=== PATIENT | male | born 1985 | race Caucasian/White ===

== ENCOUNTER 2017-08-05 17:33 | Inpatient (IN) | payer OTHER ==
[~2017-08-05] VITALS: Ht 170.2 cm; Wt 99.0 kg
[~2017-08-05 17:33] MED LIST: CEL20 PO; MOXIFLOXACIN PO; ROBACL PO
[2017-08-05 17:35] VITALS: Ht 170.2 cm; Wt 99.0 kg
[2017-08-05 18:57] LABS: BASOPHIL % 0.6 % (0-2); PLATELET COUNT 258 x10^3mcL (130-400); RED CELL DISTRIBUTION WIDTH 13.7 % (11.5-14.5)
[2017-08-05 19:03] LABS: CALCIUM 8.8 mg/dL (8.5-10.1); CARBON DIOXIDE 25.7 mmol/L (21-32); CHLORIDE SERUM 102 mmol/L (98-107); GFR1 > 60 mL/min; GLUCOSE SERUM 85 mg/dL (74-106); POTASSIUM SERUM 3.5 mmol/L (3.5-5.1); SODIUM SERUM 138 mmol/L (136-145)
[2017-08-05 19:05] LABS: ALBUMIN 3.6 g/dL (3.4-5.0); ALKALINE PHOSPHATASE 68 U/L (46-116); ALT/SGPT 49 U/L (16-63); AST/SGOT 33 U/L (15-37); BILIRUBIN TOTAL 0.34 mg/dL (0.20-1.00); TOTAL PROTEIN, SERUM 7.4 g/dL (6.4-8.2)
[2017-08-05] MEDS ORDERED: TRAZODONE50 M1 PO (19:51)
[2017-08-05] MEDS ORDERED: DEPAKOTE ER250 M1 PO (19:51)
[2017-08-05] MEDS ORDERED: WEL75 PO (19:52)
[2017-08-05] MEDS ORDERED: VITAMIN-D1000 IU PO (19:52)
[2017-08-05 20:39] LABS: microscopic required? NO
[2017-08-05 21:01] LABS: UA SPECIFIC GRAVITY <=1.005 (1.005-1.035); urine erythrocyte NEGATIVE (NEGATIVE)
[2017-08-05 21:02] VITALS: BP 109/57
[2017-08-05 21:23] LABS: FREE T4 0.96 ng/dL (0.76-1.46); FREE THYROXINE INDEX 2.3 ug/dL (1.4-4.5); T4(THYROXINE) 7.5 ug/dL (4.7-13.3)
[2017-08-05 21:25] LABS: AMPHETAMINE QUAL UR NONE DETECTED (NEG <=1000)
[2017-08-05 21:29] LABS: T3 TOTAL 1.34 ng/mL
[2017-08-05 21:36] VITALS: BP 109/57
[2017-08-05 22:01] LABS: MAGNESIUM 1.8 mg/dL (1.8-2.4); PHOSPHOROUS 3.7 mg/dL (2.5-4.9)
[2017-08-05 22:02] LABS: CHOLESTEROL/HDL RATIO 6.2
[2017-08-06 04:23] LABS: BASOPHIL % 0.7 % (0-2); PLATELET COUNT 246 x10^3mcL (130-400); RED CELL DISTRIBUTION WIDTH 14.1 % (11.5-14.5)
[2017-08-06 04:43] LABS: CALCIUM 8.5 mg/dL (8.5-10.1); CARBON DIOXIDE 24.3 mmol/L (21-32); CHLORIDE SERUM 104 mmol/L (98-107); CREATININE SERUM 1.1 mg/dL (0.7-1.3); GFR1 > 60 mL/min; GLUCOSE SERUM 100 mg/dL (74-106); SODIUM SERUM 138 mmol/L (136-145)
[2017-08-06 06:24] VITALS: BP 91/52
[2017-08-06 09:17] VITALS: BP 102/62
[2017-08-06 12:21] VITALS: BP 115/65
[2017-08-06 16:54] VITALS: BP 108/60
[2017-08-06] MEDS ORDERED: PROTONIX40 MG/Pac1 PO (17:19)
[2017-08-06] MEDS ORDERED: LIPI10 PO (17:19)
[2017-08-06 17:38] VITALS: BP 108/60
== END 2017-08-06 18:35 | disposition home or self-care (01) | DRG 206 ==
LOC: ED 17:33 → DU 19:39
PROVIDERS: Emergency Medicine; Family Medicine
DX: M94.0 Chondrocostal junction syndrome [Tietze] (principal); F41.9 Anxiety disorder, unspecified; F43.10 Post-traumatic stress disorder, unspecified; E78.5 Hyperlipidemia, unspecified; F32.9 Major depressive disorder, single episode, unspecified; E66.9 Obesity, unspecified; Z53.29 Procedure and treatment not carried out because of patient's decision for other reasons; Z90.49 Acquired absence of other specified parts of digestive tract; Z72.89 Other problems related to lifestyle; Z68.34 Body mass index [BMI] 34.0-34.9, adult; Z79.899 Other long term (current) drug therapy; Z87.820 Personal history of traumatic brain injury
CPT/HCPCS: 83880; 84439; 85378; J2060; J7030; Q9967

== ENCOUNTER 2019-06-29 13:40 | Emergency (ER) | payer OTHER ==
[~2019-06-29] VITALS: Ht 165.1 cm; Wt 104.3 kg
[~2019-06-29 13:40] MED LIST changes: +DEPAKOTE ER250 M1 PO; +LIPI10 PO; +PROTONIX40 MG/Pac1 PO; +TRAZODONE50 M1 PO; +VITAMIN-D1000 IU PO; +WEL75 PO
[2019-06-29 13:59] VITALS: Ht 165.1 cm; Wt 104.3 kg
[2019-06-29 15:34] VITALS: BP 99/70
== END 2019-06-29 17:01 | disposition home or self-care (01) ==
LOC: ED 13:40
DX: J11.1 Influenza due to unidentified influenza virus with other respiratory manifestations (principal); E86.0 Dehydration; R11.10 Vomiting, unspecified; R42 Dizziness and giddiness
CPT/HCPCS: J1885; J7030